=== PATIENT | male | born 1990 | race Caucasian/White ===

== ENCOUNTER 2022-10-30 18:33 | Emergency (ER) | payer OTHER ==
[~2022-10-30] VITALS: Ht 167.6 cm; Wt 99.8 kg
[2022-10-30 19:10] VITALS: BP_SYST 147
--- NOTE | 2022-10-30 19:10 | NUR ---
Patient triaged and placed in waiting room. VSS and patient appears in no acute distress at this time. Accompanied by friend, awaiting available bed, and MD notified of need for MSE.
--- NOTE | 2022-10-30 22:11 | NUR ---
Patient to ER bed 5 to gown for evaluation. Side rails up. Report given to YONATHAN LOPEZ(REG).
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
[2022-10-30] MEDS ORDERED: DIPHTH,PERTUSS(ACELL),TET VAC 0.5 ML VIAL (Tdap) I.M. ONE (23:15)
[2022-10-30] MEDS ORDERED: IBUP-1969 PO (23:46)
[2022-10-30 23:55] LABS: BILIRUBIN,URINE NEGATIVE (NEGATIVE); BLOOD, URINE NEGATIVE (NEGATIVE); CLARITY/URINE SL CLOUDY (CLEAR); COLOR,URINE YELLOW (YELLOW); GLUCOSE,URINE NEGATIVE (NEGATIVE); KETONES,URINE TRACE (NEGATIVE); LEUKOCYTE ESTERASE ,URINE NEGATIVE (NEGATIVE); NITRITE, URINE NEGATIVE (NEGATIVE); PROTEIN URINE NEGATIVE (NEGATIVE); UROBILINOGEN,URINE 0.2 (0.2-1.0)
[2022-10-31] MEDS ORDERED: KETOROLAC TROMETHAMINE 60 MG/2 ML VIAL IM ONE
[2022-10-31 00:23] VITALS: BP_SYST 132
--- NOTE | 2022-10-31 00:23 | NUR ---
Patient given written and verbal discharge instructions and verbalizes understanding. ER MD discussed with patient the results and treatment provided. Patient in stable condition. ID arm band removed. Rx of ibuprofen given. Patient educated on pain management and to follow up with PMD. Pain Scale 0/10. Opportunity for questions provided and answered. Medication side effect fact sheet provided.
--- NOTE | 2022-10-31 00:24 | NUR ---
Crutches properly fitted for patient by RN. Patient given crutch walking instructions and demonstration. Is able to demonstrate adequate crutch walking technique with crutches provided.
== END 2022-10-31 00:23 | disposition home or self-care (01) ==
LOC: SED 18:33
DX: S30.22XA Contusion of scrotum and testes, initial encounter (principal); S40.211A Abrasion of right shoulder, initial encounter; Z79.899 Other long term (current) drug therapy; V89.2XXA Person injured in unspecified motor-vehicle accident, traffic, initial encounter; Y93.89 Activity, other specified; Y92.89 Other specified places as the place of occurrence of the external cause; Y99.8 Other external cause status
CPT/HCPCS: 99285; 72170; 73030; 76870; 90715; 81003; 96372; 90471; J1885